=== PATIENT | female | born 1980 | race Caucasian/White ===

== ENCOUNTER 2018-03-21 08:14 | Outpatient (CLI) | payer OTHER | END 2018-03-21 08:15 | disposition home or self-care (01) | LOC: BICMAMMO 08:14 | PROVIDERS: ATTEND Obstetrics & Gynecology | DX: Z12.31 Encounter for screening mammogram for malignant neoplasm of breast (principal); Z80.3 Family history of malignant neoplasm of breast | CPT/HCPCS: 77063; 77067 ==

== ENCOUNTER 2018-07-27 08:43 | Outpatient (CLI) | payer OTHER ==
--- NOTE | 2018-07-27 10:13 | ULT ---
LEFT BREAST ULTRASOUND: History: Focal pain in mass at the 5 o'clock position of the left breast. Comparison: Mammogram, 07-27-18, 03-21-18, 09-02-15 Technique: Multiplanar grayscale and color doppler images were obtained in a left breast ultrasound. FINDINGS: At the 5 o'clock position of the left breast, normal appearing breast parenchyma is seen. No cyst is seen. No solid mass or suspicious shadowing is present. IMPRESSION: BIRADS category 1 - negative. Annual screening mammography is recommended. POS: [facility]
--- NOTE | 2018-08-01 13:22 | MMO ---
Left Breast MAMMO Unilat Diag [facility] LT+VINI. CLINICAL HISTORY: Patient is 38 years old and is seen for diagnostic exam and pain in the left breast. The patient has the following family history of breast cancer: paternal grandmother. The patient has no personal history of cancer. VIEWS: The views performed were: left craniocaudal with tomosynthesis; left mediolateral oblique with tomosynthesis; and left mediolateral. FILMS COMPARED: The present examination has been compared to prior imaging studies performed at [facility] on 09/02/2015, 03/21/2018 and 07/27/2018. MAMMOGRAM FINDINGS: The breast is extremely dense, which may lower the sensitivity of mammography. There are stable benign appearing calcifications seen in the left breast. There are no suspicious masses, calcifications or areas of architectural distortion. IMPRESSION: THERE IS NO MAMMOGRAPHIC EVIDENCE OF MALIGNANCY. A ROUTINE FOLLOW-UP MAMMOGRAM IN 1 YEAR IS RECOMMENDED. THE RESULTS OF THIS EXAM WERE SENT TO THE PATIENT. ACR BI-RADS Category 2 - Benign finding MAMMOGRAPHY NOTE: 1. A negative mammogram report should not delay a biopsy if a dominant of clinically suspicious mass is present. 2. Approximately 10% to 15% of breast cancers are not detected by mammography. 3. Adenosis and dense breasts may obscure an underlying neoplasm.
== END 2018-07-27 08:44 | disposition home or self-care (01) ==
LOC: BICMAMMO 08:43
PROVIDERS: ATTEND Obstetrics & Gynecology
DX: N64.4 Mastodynia (principal); Z80.3 Family history of malignant neoplasm of breast
CPT/HCPCS: G0279